=== PATIENT | female | born 1965 | race Caucasian/White ===

== ENCOUNTER → 2017-05-15 | Outpatient (CLI) | payer OTHER | LOC: FIMAGING 15:23 | PROVIDERS: ATTEND Physician Assistant | DX: Z12.31 Encounter for screening mammogram for malignant neoplasm of breast (principal) ==

== ENCOUNTER 2018-05-01 13:45 | Emergency (ER) | payer OTHER ==
[2018-05-01] MEDS ORDERED: NS 1,000 ML IV ONE (14:24)
[2018-05-01 14:41] LABS: PLATELET COUNT 246 10^3/uL (150-400)
--- NOTE | 2018-05-01 15:15 | EDPHY ---
General Time Seen by Provider: 05/01/18 14:23 Narrative: CLINICAL IMPRESSION: Diarrhea ASSESSMENT/PLAN: 53-year-old female presents to the emergency department with complaints of diarrhea x2 weeks. No associated melena, bloody diarrhea, fever, chills, abdominal pain, vomiting, UTI symptoms or flank pain. Labs reassuring with no leukocytosis, electrolyte imbalance, or metabolic disturbance. Clinically, patient does not present with ulcerative colitis, Crohn's flare, or bacterial colitis. She is nontoxic appearing, nonseptic, stable vital signs. She received IV fluids with improvement in her symptoms. She was able to provide a stool sample and Gram stain and cultures as well as C diff for ordered given her recent course of antibiotics approximately 3 weeks ago. Patient will be contacted with stool study results. Encouraged hydration at home, primary care follow-up, warning signs return to ED sooner alignment discharge. DIFFERENTIAL DX: Abdominal pain includes but not limited to infectious diarrhea, C diff, urinary tract infection, pyelonephritis, acute appendicitis, acute diverticulitis, small -bowel obstruction, electrolyte imbalance, severe dehydration, colitis ED PROCEDURES: See lab and/or imaging results below ED COURSE: CHIEF COMPLAINT: Diarrhea x2 weeks HPI: 53-year-old otherwise healthy female presents to the emergency department with complaints of diarrhea daily for the last 2 weeks. No associated bloody stools , melena, severe abdominal pain, or vomiting. Patient reports she had similar symptoms 20 years ago that her primary care doctor attributed to colitis. She reports no history of chronic abdominal pain, ulcerative colitis or Crohn's disease, or IBS. No travel outside the [place] She completed a 7 day course of doxycycline in mid February for sinusitis. No history of C diff. No associated fever or chills. No UTI symptoms or flank pain. She tried a week and half of Imodium without relief. She reports 15 loose bowel movements a day. She is complaining of headache which she attributes to dehydration. She has not seen anyone for her symptoms. She has not had a screening colonoscopy. PAST MEDICAL HISTORY: None reported See nurse/triage notes for additional history if applicable Pertinent Past Surgical History: None reported Family History: Noncontributory Social History: Smokes daily, does not drink alcohol, occasionally uses marijuana REVIEW OF SYSTEMS: All other systems negative Constitutional: No fever, no chills, positive for appetite change. Cardiovascular: No chest pain, no palpitations. Respiratory: No cough, no shortness of breath. Gastrointestinal: Positive for generalized abdominal pain, no vomiting, positive for diarrhea.] Genitourinary: No hematuria, dysuria, flank pain, pelvic pain Musculoskeletal: No back pain, joint swelling, joint pain, myalgias. Skin: No rashes, color change. Neurological: Positive for headache, denies dizziness, weakness.] PHYSICAL EXAM: General Appearance: Alert, oriented, appropriate, cooperative, NAD, well hydrated, non-toxic appearing, VSS, no hypoxia. HEENT: Oropharynx clear is no erythema or exudates, no tonsillar hypertrophy or asymmetry. Dentition without abnormality.] Neck: Supple, nontender, no lymphadenopathy, no midline pain, FROM, no meningismus. Respiratory: There are no retractions, lungs are clear to auscultation. Cardiac: Regular rate and rhythm, no murmurs or gallops. Gastrointestinal: Abdomen is soft, nontender, bowel sounds normal, no masses/ hernia, no rigidity, guarding or focal peritoneal findings. Neurological: Alert and oriented x 3, CN 2-12 grossly intact, normal gait no ataxia, DTR's intact, normal sensation and strength Skin: Warm, dry, no rashes, no nodules on palpation. MEDICAL DECISION MAKING: Patient was seen independently. Secondary supervising physician at time of evaluation was Dr Cobb. Diagnosis: Diarrhea. New, requires workup Summary: See Assessment and Plan for summary of ED visit Clinical lab tests: ordered / reviewed. Patient Progress: Improved. - History Smoking Status: Current every day smoker - Objective Vital Signs: Initial Vital Signs Temperature (C) 36.4 C 05/01/18 13:52 Heart Rate 74 05/01/18 13:52 Respiratory Rate 16 05/01/18 13:52 Blood Pressure 122/66 H 05/01/18 13:52 O2 Sat (%) 96 05/01/18 13:52 O2 Delivery Mode Room Air Allergies/Adverse Reactions: amoxicillin Allergy (Verified 05/01/18 13:50) Home Medications: Medication Instructions Recorded Ativan 05/01/18 Estrogen Patch 05/01/18 Progesterone 05/01/18 Laboratory Results: Laboratory Results 05/01/18 14:30 05/01/18 14:30 Microbiology Results: MICROBIOLOGY 05/01/18 14:30 Stool Gastrointestinal Tract Panel (PCR) - Final No Organism Detected By Pcr Medications Given: Discontinued Medications Sodium Chloride (Ns) 1,000 mls @ 0 mls/hr IV EDNOW ONE; Wide Open PRN Reason: Protocol Stop: 05/01/18 14:25 Last Admin: 05/01/18 14:38 Dose: 1,000 mls Departure - Departure Disposition: Home, Routine, Self-Care Clinical Impression: Diarrhea Condition: Good Instructions: Acute Diarrhea (ED) Additional Instructions: DISCHARGE INSTRUCTIONS FROM YOUR DOCTOR Thank you for visiting our emergency department today. Please keep in mind that discharge from the emergency department does not mean that there is nothing wrong - it simply means that we have not identified an emergency condition that requires further evaluation or treatment in the hospital. You should always plan to follow up with primary care for re-evaluation of your condition in the next 2-3 days. If you have been referred to a specialist, please call as soon as possible (today or tomorrow) to schedule your follow up appointment at the appropriate time. IF YOU WERE ABLE TO PROVIDE STOOL CULTURES IN THE EMERGENCY DEPARTMENT WE HAVE SENT THESE FOR ADDITIONAL LAB STUDIES. IF YOU ARE UNABLE TO PROVIDE STOOL, A STOOL COLLECTION KIT WAS PROVIDED ALONG WITH A PRESCRIPTION FOR STOOL STUDIES. PLEASE MAKE A FOLLOW-UP APPOINT WITH HER PRIMARY CARE DOCTOR THIS WEEK TO RECHECK. ELECTROLYTES AND LAB WORK IN THE ER WERE REASSURING. PLEASE STAY WELL HYDRATED WITH INAPPROPRIATE ELECTROLYTE BALANCED DRINK AND ADVANCE DIET TOLERATED. RETURN TO THE EMERGENCY DEPARTMENT IMMEDIATELY FOR SEVERE ABDOMINAL PAIN, BLOODY STOOLS, FEVER OR CHILLS, VOMITING, OR ANY OTHER CONCERNS. People present with illnesses and injuries in different ways, and it is always possible that we have missed something. You may always return for re-evaluation if symptoms worsen or if they are not improving or if you develop new/different symptoms. Again, thank you for choosing our emergency department. We hope that you feel better. Referrals: Delmis Mcmahon PA [Primary Care Provider] - 1-2 days without fail
[2018-05-01 16:33] VITALS: BP 121/68
== END 2018-05-01 16:34 | disposition home or self-care (01) ==
DX: R19.7 Diarrhea, unspecified (principal); E86.9 Volume depletion, unspecified; Z88.0 Allergy status to penicillin

== ENCOUNTER → 2018-06-05 | Outpatient (CLI) | payer OTHER | LOC: FIMAGING 15:54 | PROVIDERS: ATTEND Physician Assistant | DX: J40 Bronchitis, not specified as acute or chronic (principal) ==